=== PATIENT | female | born 1980 | race Two or more races ===

== ENCOUNTER 2019-06-18 06:53 | Emergency (ER) | payer SELFPAY ==
[~2019-06-18] VITALS: Ht 154.9 cm; Wt 76.2 kg
[2019-06-18 07:05] VITALS: BP 123/73
[2019-06-18] MEDS ORDERED: IBUPROFEN 800 MG TAB PO ONE (08:15)
== END 2019-06-18 08:35 | disposition home or self-care (01) ==
LOC: ER 06:53
DX: K04.7 Periapical abscess without sinus (principal)